=== PATIENT | male | born 1985 | race Caucasian/White ===

== ENCOUNTER 2017-01-23 13:30 | Emergency (ER) | payer SELFPAY ==
[~2017-01-23] VITALS: Ht 180.3 cm; Wt 95.3 kg
--- NOTE | 2017-01-23 15:11 | Urgent Treatment Center Report ---
History of Present Issue Date/Time Seen by Provider 01/23/17 1510 Visit Reason Pt arrived:Walked Presenting Problem:PT NEEDS TO BE CLEARED TO RETURN TO WORK AFTER HIS BLOOD SUGAR BOTTOMED OUT WHILE THERE YESTERDAY AT 1330 Location if Accident: Onset of symptoms date/time:/ or onset unknown for:MEDICAL HX UNKNOWN Have you (or family members/close friends) recently traveled outside the [place]? N If Yes, where/when: Have you had exposure to infectious disease within the past month? TB? Other? Specify: Patient state that he has a history of diabetes State that he was working yesterday and hadn't eaten a snack in several hours and became light headed and had to sit down State that he felt better after he eat something to raise his blood sugar back up. States that this happens sometimes when he hasn't had a break to grab something to drink and a snack but it scared them at work and they wanted him to come in and have his blood sugar checked before he came into work today to make sure it was ok ALLERGIES Coded Allergies: Sulfa (Sulfonamide Antibiotics) (Mild, 01/23/17) History Medical History General CAD? No Angina: No HI: No Hypertension? No Hyperlipidemia? No CHF? No DVT? No PE? No COPD? No Asthma? No Anemia? No GERD? No Gastric ulcers? No GI Bleed? No Hernia? No Thyroid Problems? No Hypothyroidism? No CVA? No Seizures? No Diabetes? No Renal Insuffiency? No UTI? No Stones? No BPH? No GB Disease: No Nephritic Syndrome? No Asplenia? No Hepatitis? No Sickle Cell Disease? No Arthritis? No Migraines? No Cataracts? No Glaucoma? No MRSA? No HIV? No TB? No Anxiety? No Depression? No Cancer? No More? No Immunization HX DT/Tetanus Unknown Surgical Hx Previous Surgery?N .N/A Family History Family HX Diabetes Yes Hypertension Yes Cancer No TB No Social History Smoking Hx Smoker: Current Some Day Smoker Tobacco: Yes Type Cigars Alcohol Alcohol: No Review of Systems All Other Systems Reviewed and Negative Comment Was at work yesterday when he didn't eat or have a snack for awhile when he began to feel weak and had to sit down States that he felt better after eating a snack but it worried them at work and they wanted him to come in today to get his sugar checked. States that he controlls sugar with diet and he just eat about an hour prior to coming in Physical Exam Vital Signs Vital Signs Date Time Temp Pulse Resp B/P Pulse O2 O2 Flow FiO2 Ox Delivery Rate 01/23 1443 98.0 97 20 153/101 99 General Appearance normal appearance, no apparent distress Respiratory Status Yes: trachea midline, chest symmetrical, non tender chest. No: respiratory distress. Cardiovascular normal exam, regular rate/rhythm Neurologic alert, normal exam, oriented x 3 Medical Decision Making LABS/Meds/Orders Pt receiving controlled substance in ED? No Results/Orders Laboratory Tests 01/23/17 1525: POC Glucose Pending Orders Procedure Date/time Status FINGERSTICK BLOOD SUGAR 01/23 1525 Active [facility] FS GLUCOSE BY NURSE AT BS 01/23 1519 Active Progress [facility] Progress Notes Comment Patient fsbs greater than 300 States that he just eat prior to arrival and state that his blood sugar is controlled with diet Departure Departure Time of Disposition 1537 Disposition DC Home or Self Care(routine) Clinical Impression Primary Impression: Diabetic complication Condition STABLE Patient Instructions Complications of Diabetes (Alternative Therapy) Additional Instructions Finger stick blood sugar above 300 patient states that he had just eating prior to coming to [facility] Follow up with family doctor for medication and treatment for Diabetes Return if needed Make sure to eat frequent snacks to help maintain blood sugar and keep it elevated Follow up with family doctor for medication and further treatment Discharge Counseling Counseled pt/family regarding diagnosis, home care, follow up needs at [phone]
--- NOTE | 2017-01-23 15:11 | Urgent Treatment Center Report ---
History of Present Issue Date/Time Seen by Provider 01/23/17 1510 Visit Reason Pt arrived:Walked Presenting Problem:PT NEEDS TO BE CLEARED TO RETURN TO WORK AFTER HIS BLOOD SUGAR BOTTOMED OUT WHILE THERE YESTERDAY AT 1330 Location if Accident: Onset of symptoms date/time:/ or onset unknown for:MEDICAL HX UNKNOWN Have you (or family members/close friends) recently traveled outside the [place]? N If Yes, where/when: Have you had exposure to infectious disease within the past month? TB? Other? Specify: Patient state that he has a history of diabetes State that he was working yesterday and hadn't eaten a snack in several hours and became light headed and had to sit down State that he felt better after he eat something to raise his blood sugar back up. States that this happens sometimes when he hasn't had a break to grab something to drink and a snack but it scared them at work and they wanted him to come in and have his blood sugar checked before he came into work today to make sure it was ok ALLERGIES Coded Allergies: Sulfa (Sulfonamide Antibiotics) (Mild, 01/23/17) History Medical History General CAD? No Angina: No NE: No Hypertension? No Hyperlipidemia? No CHF? No DVT? No PE? No COPD? No Asthma? No Anemia? No GERD? No Gastric ulcers? No GI Bleed? No Hernia? No Thyroid Problems? No Hypothyroidism? No CVA? No Seizures? No Diabetes? No Renal Insuffiency? No UTI? No Stones? No BPH? No GB Disease: No Nephritic Syndrome? No Asplenia? No Hepatitis? No Sickle Cell Disease? No Arthritis? No Migraines? No Cataracts? No Glaucoma? No MRSA? No HIV? No TB? No Anxiety? No Depression? No Cancer? No More? No Immunization HX DT/Tetanus Unknown Surgical Hx Previous Surgery?N .N/A Family History Family HX Diabetes Yes Hypertension Yes Cancer No TB No Social History Smoking Hx Smoker: Current Some Day Smoker Tobacco: Yes Type Cigars Alcohol Alcohol: No Review of Systems All Other Systems Reviewed and Negative Comment Was at work yesterday when he didn't eat or have a snack for awhile when he began to feel weak and had to sit down States that he felt better after eating a snack but it worried them at work and they wanted him to come in today to get his sugar checked. States that he controlls sugar with diet and he just eat about an hour prior to coming in Physical Exam Vital Signs Vital Signs Date Time Temp Pulse Resp B/P Pulse O2 O2 Flow FiO2 Ox Delivery Rate 01/23 1443 98.0 97 20 153/101 99 General Appearance normal appearance, no apparent distress Respiratory Status Yes: trachea midline, chest symmetrical, non tender chest. No: respiratory distress. Cardiovascular normal exam, regular rate/rhythm Neurologic alert, normal exam, oriented x 3 Medical Decision Making LABS/Meds/Orders Pt receiving controlled substance in ED? No Results/Orders Laboratory Tests 01/23/17 1525: POC Glucose Pending Orders Procedure Date/time Status FINGERSTICK BLOOD SUGAR 01/23 1525 Active [facility] FS GLUCOSE BY NURSE AT BS 01/23 1519 Active Progress [facility] Progress Notes Comment Patient fsbs greater than 300 States that he just eat prior to arrival and state that his blood sugar is controlled with diet Departure Departure Time of Disposition 1537 Disposition DC Home or Self Care(routine) Clinical Impression Primary Impression: Diabetic complication Condition STABLE Patient Instructions Complications of Diabetes (Alternative Therapy) Additional Instructions Finger stick blood sugar above 300 patient states that he had just eating prior to coming to [facility] Follow up with family doctor for medication and treatment for Diabetes Return if needed Make sure to eat frequent snacks to help maintain blood sugar and keep it elevated Follow up with family doctor for medication and further treatment Discharge Counseling Counseled pt/family regarding diagnosis, home care, follow up needs at [phone]
[2017-01-23 15:58] VITALS: BP 153/101
--- OUTSIDE RECORDS SUMMARY | 2017-01-30 05:13 | External Medical Summary Rpt ---
Author Author WILLIS Dumont, [employer] Organization [employer] Address Unknown Phone Unavailable
--- OUTSIDE RECORDS SUMMARY | 2017-01-30 05:13 | External Medical Summary Rpt | CCD ---
Author Author , WILLIS PEDRO Address Unknown Phone [email or web address] Care Team Providers Care Regional Sales Manager Name Role Phone TERESSA TERESSA KRAMER Unavailable Unavailable [facility] Unavailable Unavailable [facility], [facility] Unavailable Unavailable [facility] Unavailable Unavailable [facility] Unavailable Unavailable EMS, [facility] Unavailable Unavailable EMS, [facility], [facility] Purpose Continuity of Care Document - 06-09-2015 through 2016 Problems Code Diagnosis DOS Provider Status 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 H5319 OTHER 06-06-2016 [facility] SUBJECTIVE VISUAL DISTURBANCE S H578 OTHER 06-02-2016 [facility] SPECIFIED DISORDERS OF EYE AND ADNEXA E1165 TYPE 2 06-09-2015 [facility] [place] HYPERGLYCEM [place] E119 TYPE 2 06-09-2015 [facility] MELLITUS PHYS WITHOUT COMPLICATIO NS J209 ACUTE 06-09-2015 [facility] UNSPECIFIED PHYS R05 COUGH 06-09-2015 [facility] PHYS R110 NAUSEA 06-09-2015 [facility] EMS R55 SYNCOPE AND 06-09-2015 [facility] Z882 ALLERGY 06-09-2015 [place] [facility] TO [facility] Procedures Procedure DOS Code Location Performer Comment GLUC BLD 34640 [facility] GLUC MNTR [address] [place] [address] CLEARED FDA SPEC HOME USE BLOOD 65298 [facility] COUNT [address] [place] [address] AUTO&AUTO DIFRNTL WBC CULTURE 67240 [facility] BACTERIAL [address] [place] [address] AEROBIC W/ID ISOLATES DRUG TEST G0479 [address] NSTRUMENT ED CHEMISTRY ANLYZER URNLS DIP [address] [facility] HOSPITAL LET REAGENT AUTO MICROSCOP Y GROUND A0425 [facility] [place] MILEAGE 6 [facility] STATUTE EMS EMS MILE IAADIADOO [address] INFLUENZA [facility] COMPREHEN 17479 [facility] SIVE [address] [place] [address] METABOLIC [facility] PANEL KETONE 40849 [facility] BODIES [address] [place] [address] SERUM [facility] [place] [address] [facility] LIPASE [address] [place] [address] RADIOLOGI 97681 [facility] C [address] [place] [address] EXAMINATI [facility] ON CHEST SINGLE VIEW FRONTAL INFUSION J7030 [facility] NORMAL [address] [place] [address] SOLUTION 1000 CC AMB A[address] EMERGENCY EMS EMS TRANSPORT LEVEL 1 Encounters Encounter Start End Date Code Location Performer Type Date OFFICE 70952 [facility]INA [facility] 7 7 T VISIT 15 MINUTES OFFICE 98589 [facility] 7 7 T NEW 30 MINUTES EMERGENCY [address] T VISIT HIGH/URGE NT SEVERITY HOSPITAL [address] T EMERGENCY [address]608 [facility] DEPT 6 6 [place] NIA VISIT EMERGENCY HIGH PHYS SEVERITY& THREAT FUNCJ
--- OUTSIDE RECORDS SUMMARY | 2017-01-30 05:13 | External Medical Summary Rpt | CCD ---
Demographics Preferred Language Montserratian Marital Status Unknown Church Affiliation Unknown Race Unknown Ethnic Group Unknown Author Author , WILLIS PEDRO Address Unknown Phone Immunization No patient found.
--- OUTSIDE RECORDS SUMMARY | 2017-01-30 05:13 | External Medical Summary Rpt | CCD ---
Author Author , WILLIS PEDRO Address Unknown Phone [email or web address] Care Team Providers Care Stock Layer Name Role Phone TERESSA GRACIA Unavailable Unavailable [facility] Unavailable Unavailable HOSPITAL, [facility] Unavailable Unavailable [facility] Unavailable Unavailable [facility] Unavailable Unavailable EMS, [facility] Unavailable Unavailable EMS, [facility] Unavailable Unavailable EMERGENCY PHYS, [facility] Purpose Continuity of Care Document - 06-09-2015 through 2016 Problems Code Diagnosis DOS Provider Status [id number] DIFFUSE 06-06-2016 [facility] INTERSTITIA L KERATITIS RIGHT EYE H5319 OTHER 06-06-2016 [facility] SUBJECTIVE VISUAL DISTURBANCE S H578 OTHER 06-02-2016 [facility] SPECIFIED DISORDERS OF EYE AND ADNEXA E1165 TYPE 2 06-09-2015 [facility] WITH HYPERGLYCEM [place] E119 TYPE 2 06-09-2015 [facility] MELLITUS PHYS WITHOUT COMPLICATIO NS J209 ACUTE 06-09-2015 [facility]GENCY UNSPECIFIED PHYS R05 COUGH 06-09-2015 [facility] PHYS R110 NAUSEA 06-09-2015 [facility] EMS R55 SYNCOPE AND 06-09-2015 [facility] EMS Z882 ALLERGY 06-09-2015 [place] [facility] Allergies, Adverse Reactions, Alerts Clinical Alert Notifications Alert Diabetes: no A1C in the last 6 months Diabetes: no eye exam in the last 365 days Diabetes: no influenza vaccine in the last 365 days Diabetes: no lipid panel in the last 365 days Diabetes: no urine protein screening in the last 365 days Procedures Procedure DOS Code Location Performer Comment GLUC BLD 38142 [facility] GLUC MNTR [address] [place] [address] CLEARED FDA SPEC HOME USE BLOOD 44523 [facility] COUNT [address] [place] [address] AUTO&AUTO DIFRNTL WBC AMB A[address] EMERGENCY EMS EMS TRANSPORT LEVEL 1 RADIOLOGI 03664 [facility] C [address] [place] [address] EXAMINATI [facility] HOSPITAL ON CHEST SINGLE VIEW FRONTAL INFUSION J7030 [facility] NORMAL [address] [place] [address] SALINE [facility] SOLUTION 1000 CC KETONE 75449 [facility] BODIES [address] [place] [address] [place] [address] [facility] LIPASE [address] [place] [address] COMPREHEN 90505 [facility] SIVE [address] [place] [address] METABOLIC [facility] PANEL IAADIADOO [address] INFLUENZA [facility]PITAL URNLS DIP [address] [facility] HOSPITAL LET REAGENT AUTO MICROSCOP Y CULTURE 85827 [facility] BACTERIAL [address] [place] [address] BLOOD [facility] AEROBIC W/ID ISOLATES GROUND A[address] STATUTE EMS EMS MILE DRUG TEST G0479 [address] HOSPITAL NSTRUMENT ED CHEMISTRY ANLYZER Encounters Encounter Start End Date Code Location Performer Type Date OFFICE 17819 [facility] [place] 7 7 T VISIT 15 MINUTES OFFICE 19090 [facility] 7 7 T NEW 30 MINUTES EMERGENCY [address] T VISIT HIGH/URGE NT SEVERITY EMERGENCY 66528 [facility] DEPT 6 6 [facility] NIA VISIT EMERGENCY HIGH PHYS SEVERITY& THREAT [facility] [address]
--- OUTSIDE RECORDS SUMMARY | 2017-01-30 05:13 | External Medical Summary Rpt | CCD ---
Author Author , WILLIS PEDRO Address Unknown Phone [email or web address] Care Team Providers Care Computational Geneticist Name Role Phone TERESSA TERESSA KRAMER Unavailable Unavailable [facility] Unavailable Unavailable HOSPITAL, [facility] Unavailable Unavailable [facility] Unavailable [facility]available [facility] Unavailable Unavailable EMS, [facility] Unavailable Unavailable EMS, [facility] Unavailable Unavailable EMERGENCY PHYS, [facility] Purpose Continuity of Care Document - 06-09-2015 through 2016 Problems Code Diagnosis DOS Provider Status [id number] DIFFUSE 06-06-2016 [facility] INTERSTITIA L KERATITIS RIGHT EYE H5319 OTHER 06-06-2016 [facility] SUBJECTIVE VISUAL DISTURBANCE S H578 OTHER 06-02-2016 [facility] SPECIFIED DISORDERS OF EYE AND ADNEXA E1165 TYPE 2 06-09-2015 [facility] WITH HYPERGLYCEM [place] E119 TYPE 2 06-09-2015 [facility] MELLITUS PHYS WITHOUT COMPLICATIO NS J209 ACUTE 06-09-2015 [facility] EMERGENCY UNSPECIFIED PHYS R05 COUGH 06-09-2015 [facility] PHYS R110 NAUSEA 06-09-2015 [facility] EMS R55 SYNCOPE AND 06-09-2015 [facility] EMS Z882 ALLERGY 06-09-2015 [facility] Procedures Procedure DOS Code Location Performer Comment GLUC BLD 85582 [facility] GLUC MNTR [address] [place] [address] CLEARED FDA SPEC HOME USE BLOOD 04810 [facility] COUNT [address] [place] [address] AUTO&AUTO DIFRNTL WBC CULTURE 76832 [facility] BACTERIAL [address] [place] [address] AEROBIC W/ID ISOLATES DRUG TEST G[address] NSTRUMENT ED CHEMISTRY ANLYZER URNLS DIP [address] [facility] HOSPITAL LET REAGENT AUTO MICROSCOP Y GROUND A0425 SARITA [place] MILEAGE 6 [facility] STATUTE EMS EMS MILE IAADIADOO [address] INFLUENZA [facility] COMPREHEN 20991 [facility] SIVE [address] [place] [address] METABOLIC [facility] PANEL KETONE 00403 [facility] BODIES [address] [place] [address] SERUM [facility] [place] [address] [facility] LIPASE [address] [place] [address] RADIOLOGI 10229 [facility] C [address] [place] [address] EXAMINATI [facility] ON CHEST SINGLE VIEW FRONTAL INFUSION J7030 [facility] NORMAL [address] [place] [address] SOLUTION 1000 CC AMB A[address] EMERGENCY EMS EMS TRANSPORT LEVEL 1 Encounters Encounter Start End Date Code Location Performer Type Date OFFICE 93466 [facility] 7 7 T VISIT 15 MINUTES OFFICE 20337 [facility] 7 7 T NEW 30 MINUTES EMERGENCY [address] T VISIT HIGH/URGE NT SEVERITY HOSPITAL [address] T EMERGENCY [address] [facility] DEPT 6 6 KENZ[place] NIA VISIT EMERGENCY HIGH PHYS SEVERITY& THREAT FUNCJ
--- OUTSIDE RECORDS SUMMARY | 2017-01-30 05:13 | External Medical Summary Rpt | CCD ---
Demographics Preferred Language Northern Irish Marital Status Unknown Zoroastrianism Affiliation Unknown Race Unknown Ethnic Group Unknown Author Author , WILLIS PEDRO Address Unknown Phone Immunization No patient found.
--- OUTSIDE RECORDS SUMMARY | 2017-01-30 05:13 | External Medical Summary Rpt | CCD ---
Author Author , WILLIS PEDRO Address Unknown Phone [email or web address] Care Team Providers Care Tailing Machine Operator Name Role Phone TERESSA GRACIA Unavailable Unavailable [facility] Unavailable Unavailable HOSPITAL, [facility] Unavailable Unavailable [facility] Unavailable Unavailable [facility] Unavailable Unavailable EMS, [facility] EMS [facility] Unavailable Unavailable EMS, [facility] EMS [facility] Unavailable [facility]available EMERGENCY PHYS, [facility] Purpose Continuity of Care Document - 06-09-2015 through 2016 Problems Code Diagnosis DOS Provider Status [id number] DIFFUSE 06-06-2016 [facility] INTERSTITIA L KERATITIS RIGHT EYE H5319 OTHER 06-06-2016 [facility] SUBJECTIVE VISUAL DISTURBANCE S H578 OTHER 06-02-2016 [facility] SPECIFIED DISORDERS OF EYE AND ADNEXA E1165 TYPE 2 06-09-2015 [facility] WITH HYPERGLYCEM [place] E119 TYPE 2 06-09-2015 [facility] MELLITUS PHYS WITHOUT COMPLICATIO NS J209 ACUTE 06-09-2015 [facility] N EMERGENCY UNSPECIFIED PHYS R05 COUGH 06-09-2015 [facility] N [facility] PHYS R110 NAUSEA 06-09-2015 [facility] EMS R55 SYNCOPE AND 06-09-2015 [facility] EMS Z882 ALLERGY 06-09-2015 [place] [facility] TO [facility] Allergies, Adverse Reactions, Alerts [...] DOS Code Location Performer Comment GLUC BLD 42224 [facility] GLUC MNTR [address] [place] [address] CLEARED FDA SPEC HOME USE BLOOD 20372 [facility] COUNT [address] [place] [address] AUTO&AUTO DIFRNTL WBC AMB A[address] EMERGENCY EMS EMS TRANSPORT LEVEL 1 RADIOLOGI 94801 [facility] C [address] [place] [address] EXAMINATI [facility]PITAL ON CHEST SINGLE [place]IEW FRONTAL INFUSION J7030 [facility] NORMAL [address] [place] [address] SALINE [facility] SOLUTION 1000 CC KETONE 29387 [facility] BODIES [address] [place] [address] [place] [address] [facility] LIPASE [address] [place] [address] COMPREHEN 58257 [facility] SIVE [address] [place] [address] METABOLIC [facility] PANEL IAADIADOO [address] INFLUENZA [facility] URNLS DIP [address] [facility] HOSPITAL LET REAGENT AUTO MICROSCOP Y CULTURE 25663 [facility] BACTERIAL [address] [place] [address] BLOOD [facility] AEROBIC W/ID ISOLATES GROUND A[address] STATUTE EMS EMS MILE DRUG TEST G04[address] HOSPITAL NSTRUMENT ED CHEMISTRY ANLYZER Encounters Encounter Start End Date Code Location Performer Type Date OFFICE 26516 [facility] [place] 7 7 T VISIT 15 MINUTES OFFICE 65168 [facility] 7 7 T NEW 30 MINUTES EMERGENCY [address] T VISIT HIGH/URGE NT SEVERITY EMERGENCY 14191 [facility] DEPT 6 6 [facility] NIA VISIT EMERGENCY HIGH PHYS SEVERITY& THREAT [facility] [address]
== END 2017-01-23 16:17 | disposition home or self-care (01) ==
LOC: UTC 13:30
DX: E11.8 Type 2 diabetes mellitus with unspecified complications (principal); F17.210 Nicotine dependence, cigarettes, uncomplicated

== ENCOUNTER 2017-03-16 08:46 | Emergency (ER) | payer SELFPAY ==
[~2017-03-16] VITALS: Ht 180.3 cm; Wt 90.7 kg
--- OUTSIDE RECORDS SUMMARY | 2017-03-16 08:50 | External Medical Summary Rpt | CCD ---
Author Author , WILLIS PEDRO Address Unknown Phone [email or web address] Purpose Continuity of Care Document - 01-23-2017 through 2016 Results Labs Lab Lab Date Result Refere Interp Status Commen Order Detail nces retati t Range on Glucose capillary blood glucometer (01-23-2017 15:25) Glucose = 315 70-110 complet 017 mg/dl ed capilla 15:[address]
--- OUTSIDE RECORDS SUMMARY | 2017-03-16 08:50 | External Medical Summary Rpt | CCD ---
Author Author , WILLIS PEDRO Address Unknown Phone [email or web address] Purpose Continuity of Care Document - 01-23-2017 through 2016 Results Labs Lab Lab Date Result Refere Interp Status Commen Order Detail nces retati t Range on Glucose capillary blood glucometer (01-23-2017 15:25) Glucose = 315 70-110 complet 017 mg/dl ed capilla 15:[address]
--- OUTSIDE RECORDS SUMMARY | 2017-03-16 08:51 | External Medical Summary Rpt ---
Author Author WILLIS Dumont, [employer] Address Unknown Phone Unavailable Results Glucose [Mass/volume] in Capillary blood by Glucometer Observa Value Referen Units Interpr Notes Date tion ce etation Range Glucose 70 - 110 mg/dl High No Jan 23 [Mass/vol alert informati 2017 3:25 ume] in on in PM Capillary source blood by data Glucomete r
--- OUTSIDE RECORDS SUMMARY | 2017-03-16 08:51 | External Medical Summary Rpt | CCD ---
Author Author [employer] Address Unknown Phone Unavailable Purpose Continuity of Care Document - through 2016
--- OUTSIDE RECORDS SUMMARY | 2017-03-16 08:51 | External Medical Summary Rpt ---
Author Author WILLIS Dumotn, [employer] Address Unknown Phone Unavailable Results Glucose [Mass/volume] in Capillary blood by Glucometer Observa Value Referen Units Interpr Notes Date tion ce etation Range Glucose 70 - 110 mg/dl High No Jan 23 [Mass/vol alert informati 2017 3:25 ume] in on in PM Capillary source blood by data Glucomete r
--- OUTSIDE RECORDS SUMMARY | 2017-03-16 08:51 | External Medical Summary Rpt | CCD ---
Demographics Preferred Language Sen[place]alese Marital Status Unknown Scientologist Affiliation Unknown Race Unknown Ethnic Group Unknown Author Author , WILLIS PEDRO Address Unknown Phone Immunization No patient found.
--- OUTSIDE RECORDS SUMMARY | 2017-03-16 08:51 | External Medical Summary Rpt | CCD ---
Demographics Preferred Language Burmese Marital Status Unknown Jewish Affiliation Unknown Race Unknown Ethnic Group Unknown Author Author , WILLIS PEDRO Address Unknown Phone Immunization No patient found.
[2017-03-16] MEDS ORDERED: ZOFRAN ODT4 MG PO (09:29)
--- NOTE | 2017-03-16 09:31 | Urgent Treatment Center Report ---
History of Present Issue Date/Time Seen by Provider 03/16/17 0921 Visit Reason Pt arrived:Walked Presenting Problem:PT COMPLAINS OF NAUSEA X 2 WEEKS. STATES HE FELT SICK AT WORK THIS AM BUT IT RESOLVED AFTER HE ATE. ALSO STATES HE IS MAINLY HERE FOR A WORK NOTE. PT STATES HIS BP IS USUALLY ELEVATED WHEN HE IS AT THE DR. Location if Accident: Onset of symptoms date/time:/ or onset unknown for:MEDICAL HX UNKNOWN Have you (or family members/close friends) recently traveled outside the [facility]? N If Yes, where/when: Have you had exposure to infectious disease within the past month? TB? Other? Specify: Patient state that he was at work this morning and felt nauseated State thats that they made him eat a little peanut butter and he felt better State that he is still having a little nausea but they made him come up here for a work note/ State that he is waiting to get his insurance to get a good work up State that when he comes to the doctor he gets nervous and his blood pressure elevates. States that right now he feels fine and not having any issues ALLERGIES Coded Allergies: Sulfa (Sulfonamide Antibiotics) (Mild, 01/23/17) Home Medications Reported Medications No Known Home Medications History Medical History General CAD? No Angina: No DC: No Hypertension? No Hyperlipidemia? No CHF? No DVT? No PE? No COPD? No Asthma? No Anemia? No GERD? No Gastric ulcers? No GI Bleed? No Hernia? No Thyroid Problems? No Hypothyroidism? No CVA? No Seizures? No Diabetes? Yes Insulin Dependent: No Insulin Pump: No Home FSBS? No Renal Insuffiency? No UTI? No Stones? No BPH? No GB Disease: No Nephritic Syndrome? No Asplenia? No Hepatitis? No Sickle Cell Disease? No Arthritis? No Migraines? No Cataracts? No Glaucoma? No MRSA? No HIV? No TB? No Anxiety? No Depression? No Cancer? No More? No Immunization HX DT/Tetanus Unknown Surgical Hx Previous Surgery?N .N/A Family History Family HX Diabetes Yes Hypertension Yes Cancer No TB No Social History Smoking Hx Smoker: Current Every Day Smoker Tobacco: Yes Type Cigars Alcohol Alcohol: No Review of Systems All Other Systems Reviewed and Negative Gastrointestinal nausea Comment States that he didnt' eat this morning before going to work and after getting at work he became nausous and then he eat a little breakfast and felt better but work made him come and get seen for work note Physical Exam Vital Signs Vital Signs Date Time Temp Pulse Resp B/P Pulse O2 O2 Flow FiO2 Ox Delivery Rate 03/16 0908 97.8 113 20 150/100 100 General Appearance normal appearance, WD/WN, no apparent distress Respiratory Status Yes: trachea midline, chest symmetrical, non tender chest. No: respiratory distress. Lung Sounds bilateral: normal breath sounds, lungs clear. Cardiovascular normal exam, regular rate/rhythm, no peripheral edema Gastrointestinal normal bowel sounds, normal exam, non tender, no guarding, no rebound Neurologic alert, no motor/sensory deficits, oriented x 3 Medical Decision Making LABS/Meds/Orders Pt receiving controlled substance in ED? No Departure Departure Time of Disposition 925 Disposition DC Home or Self Care(routine) Clinical Impression Primary Impression: Nausea Condition STABLE Referrals Family doctor Patient Instructions DI for Nausea -- Adult, Nausea (Alternative Therapy) Additional Instructions Eat small meals will help with nausea Saltine crackers may help with nausea Follow up with family doctor If you do not have one please pick one from the list provided and follow up for further testing and monitoring of blood pressure Return if needed Discharge Counseling Counseled pt/family regarding diagnosis, home care, follow up needs Prescriptions Current Visit Scripts Ondansetron (Zofran 4MG Odt) 4 MG PO Q6HP PRN NAUSEA AND VOMITING #20 TAB at 0930
[2017-03-16 09:32] VITALS: BP 150/100
== END 2017-03-16 09:35 | disposition home or self-care (01) ==
LOC: UTC 08:46
DX: R11.0 Nausea (principal); Z88.2 Allergy status to sulfonamides; E11.9 Type 2 diabetes mellitus without complications; F17.210 Nicotine dependence, cigarettes, uncomplicated